=== PATIENT | female | born 1970 | race Hispanic/Latino ===

== ENCOUNTER → 2020-02-02 | Outpatient (CLI) | payer BC | END | disposition home or self-care (01) | LOC: RAH 01-19 11:03 | PROVIDERS: ATTEND Internal Medicine Gastroenterology | DX: R10.13 Epigastric pain (principal); R11.0 Nausea | CPT/HCPCS: 78264; A9541 ==

== ENCOUNTER 2025-04-16 07:59 | Day surgery (SDC) | payer BC ==
[2025-04-15 11:27] LABS: IMMATURE GRANULOCYTE ABSOLUTE 0.05 K/uL (0-1); NUCLEATED RED BLOOD CELLS 0.0 % (0.0-0.19); PLATELET COUNT (AUTO) 270 K/uL (130-400); RED BLOOD CELL COUNT(AUTO) 4.25 MIL/uL (4.00-5.50); RED CELL DISTRIBUTION WIDTH 12.6 % (11.0-15.5); WHITE BLOOD COUNT (AUTO) 9.8 K/uL (4.8-10.8)
[2025-04-15 11:31] VITALS: BP 131/71; PULSE 72; RESP 18; TEMP 98.1
[2025-04-15 11:32] LABS: APPEARANCE,URINE CLEAR (CLEAR); GLUCOSE, URINE (UA) NEGATIVE (NEGATIVE); LEUKOCYTE ESTERASE ,URINE 25 Leu/uL (NEGATIVE); NITRATE,URINE NEGATIVE (NEGATIVE); OCCULT BLOOD,URINE NEGATIVE (NEGATIVE)
[2025-04-15 11:40] LABS: INR 0.95 (0.85-1.15)
[2025-04-15 12:01] LABS: ADD UA MICROSCOPIC YES
[2025-04-15 12:07] LABS: SQUAMOUS EPITHELIAL CELL,UR Rare /HPF (0-2)
[~2025-04-16] VITALS: Ht 154.9 cm; Wt 69.8 kg
[2025-04-16] VITALS (16 sets, daily range): BP systolic 109–154; BP diastolic 67–82; PULSE 58–81; RESP 14–20; TEMP 97.3–97.8
[~2025-04-16 07:59] MED LIST: LEVO112C5 PO; OMEP40CA21 PO
[2025-04-16] MEDS ORDERED: LACTATED RINGERS 1000ML 1,000 ML IV ONE (08:21)
[2025-04-16] MEDS ORDERED: MIDAZOLAM HCL 1 MG/ML 2ML VIAL ONE (11:15)
[2025-04-16] MEDS ORDERED: CALDOLOR 800MG+NS 250ML 250 ML IV ONE (12:11)
[2025-04-16] MEDS ORDERED: NEOSTIGMINE METHYLSULFATE 1MG/ML IV ONE (12:48)
[2025-04-16] MEDS ORDERED: GLYCOPYRROLATE 0.2 MG/ML 5 ML VIAL ONE (12:48)
--- NOTE | 2025-04-16 13:07 | OP ---
Operative Note: DATE OF PROCEDURE: 04/16/25 SURGEON: JOHN LANDERS MD GUT SORTER: [] PREOPERATIVE DIAGNOSIS: ventral hernia POSTOPERATIVE DIAGNOSIS: 1.5cm ventral hernia not obstructed PROCEDURE: Robotic ventral hernia repair with mesh placement INDICATIONS: Patient with symptomatic ventral hernia DESCRIPTION OF PROCEDURE: Patient is brought to the operating room placed on the operating table in the supine position. Once general endotracheal anesthesia is achieved patient's abdomen is prepped and draped in sterile fashion. We created a small leland incision in left upper quadrant at Crespo's point. Under direct visualization with Optiview went through the abdominal wall and entered the abdominal cavity. And pneumoperitoneum obtained. And then under direct visualization proceeded to introduce other 8 mm trochars one in the right upper quadrant quadrant and the other in the epigastrium to the left of the falciform for the camera. And then switched out the 5 mm trocar from the left upper quadrant to an 8 mm trocar. We then brought the robot over top of the patient's right flank and proceeded to dock it, with the patient rotated towards the right and the bed flexed at the hips to prevent injury to the face and the hips. We then proceeded to develop the peritoneal flap with the scissors with cautery was started before the defect and then went past the defect took down the hernia sac with sharp and blunt dissection. Once down all the hernia sac was reduced and we had developed our peritoneal flap past the level of the defect then proceeded to introduce the ruler and measured the defect at 1.5 cm. We then proceeded to introduce an 8 cm mesh that will give us enough overlay. And then with OV lock proceeded to close the defect primarily while the pressure down to 8. Once the defect was completely closed we proceeded to place the mesh and the underlay fashion. And secured it to the abdominal wall using 2 OV lock. And then closed our peritoneal flap to cover the mesh completely. The peritoneal flap was closed with a 2 OV lock as well. No bleeding was observed no injuries noted. The robot is undocked all needles are removed from the abdomen. We removed our trochars. Skin incisions were closed with 4-0 Monocryl running subcuticular fashion and Dermabond. Patient tolerated the procedure well ESTIMATED BLOOD LOSS: 5 cc Devices left in place: Circular mesh 4.6 cm diameter. See implant report for detail. Anesthesia: General endotracheal Complications: None immediate Specimens removed: None JOHN LANDERS MD Apr 16, 2025 13:07
== END 2025-04-16 15:00 | disposition home or self-care (01) ==
LOC: DAH 07:59
PROVIDERS: ATTEND Student in an Organized Health Care Education/Training Program
DX: K42.9 Umbilical hernia without obstruction or gangrene (principal); K43.9 Ventral hernia without obstruction or gangrene; K21.9 Gastro-esophageal reflux disease without esophagitis; I10 Essential (primary) hypertension; Z98.82 Breast implant status; Z98.51 Tubal ligation status; Z79.01 Long term (current) use of anticoagulants; Z79.899 Other long term (current) drug therapy
CPT/HCPCS: 84703; 85025; 85610; 85730; 81001; 36415; 49613; 64488; A6260; A4663; J7030; C1781; J7120; J3010 ×4; J0665; J3490 ×2; J2250; J2704; J2405; J2710; J2795; J1741; J0690; A4215; A4213; A4222; A4221; A4216; A4223 ×2; A4600